=== PATIENT | female | born 2000 | race Caucasian/White ===

== ENCOUNTER 2023-11-19 02:59 | Emergency (ER) | payer SELFPAY ==
[2023-11-19 03:22] LABS: BASOPHILS ABSOLUTE AUTO 0.03 K/uL (0.00-0.20); BASOPHILS PERCENT AUTO 0.2 % (0.0-1.0); EOSINOPHILS ABSOLUTE AUTO 0.03 K/uL (0.00-0.45); EOSINOPHILS PERCENT AUTO 0.2 % (0.0-6.0); HEMATOCRIT 43.6 % (37.0-47.0); HEMOGLOBIN 14.6 g/dL (12.0-16.0); IMMATURE GRAN ABSOLUTE AUTO 0.04 K/uL (0.00-0.05); IMMATURE GRAN PERCENT AUTO 0.3 % (0.0-0.4); LYMPHOCYTES ABSOLUTE AUTO 2.91 K/uL (1.00-4.80); LYMPHOCYTES PERCENT AUTO 23.1 % (24.0-44.0); MEAN CORPUSCULAR HEMOGLOBIN 28.6 pg (28.0-32.0); MEAN CORPUSCULAR HGB CONC 33.5 g/dL (32.0-36.0); MEAN CORPUSCULAR VOLUME 85.5 fL (83.0-99.0); MEAN PLATELET VOLUME 10.7 fL (9.4-12.3); MONOCYTES PERCENT AUTO 5.6 % (0.0-8.0); NEUTROPHILS ABSOLUTE AUTO 8.87 K/uL (1.80-7.70); NEUTROPHILS PERCENT AUTO 70.6 % (41.0-71.0); PLATELET COUNT,PLT 310 K/uL (150-400); WHITE BLOOD CELL COUNT,WBC 12.58 K/uL (3.9-11.3)
[2023-11-19 03:46] LABS: ALBUMIN 3.9 g/dL (3.4-5.0); BILIRUBIN TOTAL 0.6 mg/dL (0.2-1.0); CALCIUM 9.6 mg/dL (8.5-10.1); CARBON DIOXIDE,CO2 24.7 mmol/L (21.0-32.0); CREATININE 0.9 mg/dL (0.6-1.0); EST CRCL DRUG DOSING (CG) 75.58 mL/min; POTASSIUM,K 4.3 mmol/L (3.5-5.1); PROTEIN TOTAL,TP 7.9 g/dL (6.4-8.2)
[2023-11-19 03:48] LABS: APPEARANCE,URINE SLT CLOUDY; COLOR,URINE YELLOW; GLUCOSE,URINE NEGATIVE (NEGATIVE); KETONES,URINE NEGATIVE (NEGATIVE); LEUKOCYTE ESTERASE,URINE NEGATIVE (NEGATIVE); NITRITE,URINE POSITIVE (NEGATIVE); OCCULT BLOOD,URINE SMALL (NEGATIVE); PH,URINE 5.5 (5.0-8.0); PROTEIN,URINE NEGATIVE (NEGATIVE)
[2023-11-19 03:54] LABS: BILIRUBIN,URINE SMALL (NEGATIVE)
[2023-11-19] MEDS: Ketorolac 30 MG/ML SDV IVPUSH ONE (03:54)
[2023-11-19 03:55] LABS: BACTERIA,URINE 1+ (NEGATIVE); EPITHELIAL CELLS,URINE FEW (NONE-FEW); WBC,URINE 0-1 (0-5/HPF)
[2023-11-19] MEDS: Sodium Chloride 0.9% 2.5 ML Syringe FLUSH PRN (03:56)
[2023-11-19] MEDS: Sodium Chloride 0.9% 10 ML Syringe FLUSH PRN (03:56)
[2023-11-19] MEDS: Ondansetron 4 MG Tab PO ONE (04:09)
[2023-11-19] MEDS: Ondansetron 4 MG/2 ML SDV IVPUSH ONE (04:12)
== END 2023-11-19 04:55 | disposition home or self-care (01) ==
LOC: MW.ED 02:59
DX: K80.20 Calculus of gallbladder without cholecystitis without obstruction (principal); I10 Essential (primary) hypertension; F17.210 Nicotine dependence, cigarettes, uncomplicated; Z79.899 Other long term (current) drug therapy; Z88.1 Allergy status to other antibiotic agents; Z75.8 Other problems related to medical facilities and other health care
CPT/HCPCS: 36415; 76705; 76705-26; 80053; 81001; 81025; 83690; 85025; 96374; 96375; 99284-25; J1885; J2405; J3490

== ENCOUNTER 2023-11-30 09:15 | Day surgery (SDC) | payer SELFPAY ==
[~2023-11-30 09:15] MED LIST: Albuterol 0.083% 2.5 MG/3 ML Neb Soln NEB PRN; Dexamethasone 4 MG/ML 5 ML MDV ONE; HYDROmorphone 1 MG/ML Syringe IVPUSH PRN; Lidocaine 2% 5 ML SDV ONE; Metoclopramide 10 MG/2 ML SDV IVPUSH PRN; Morphine 2 MG/ML SYRINGE IVPUSH PRN; Naloxone 0.4 MG/ML SDV IVPUSH PRN; Ondansetron 4 MG/2 ML SDV IVPUSH PRN; Ondansetron 4 MG/2 ML SDV ONE; Phenylephrine HCl In 0.9% NaCl 1 MG/10 ML Syringe IVPUSH PRN; Propofol 200 MG/20 ML SDV ONE; Rocuronium Bromide 50 MG/5 ML Syringe ONE; ceFAZolin 2 GM in Sodium Chloride 0.9% 50 ML IV ONE; droPERidol 5 MG/2 ML SDV IVPUSH PRN; fentaNYL 100 MCG/2 ML SDV ONE; fentaNYL 50 MCG/ML SDV IVPUSH PRN
[2023-11-30] MEDS ORDERED: dexmedeTOMIDine HCl 200 MCG/2 ML SDV IV ONE (09:16)
[2023-11-30] MEDS: Scopalamine 1mg/3day Transdermal Patch TOP ONE (09:52)
[2023-11-30] MEDS: Lactated Ringers 1,000 ML IV SCH (09:57)
[2023-11-30] MEDS ORDERED: Midazolam 1 MG/ML 2 ML SDV ONE (10:35)
[2023-11-30] MEDS ORDERED: Ropivacaine 0.5% 5 MG/ML 30 ML SDV ONE (10:49)
[2023-11-30] MEDS ORDERED: Bupivacaine 0.25% 30 ML SDV ONE (11:44)
[2023-11-30] MEDS ORDERED: Bupivacaine 0.5% 30 ML SDV ONE (11:45)
[2023-11-30] MEDS ORDERED: ceFAZolin 1 GM Vial ONE ×2 (11:45→12:20)
[2023-11-30] MEDS ORDERED: Indocyanine Green 25 MG SDV ONE (12:26)
[2023-11-30] MEDS ORDERED: Rocuronium Bromide 50 MG/5 ML Syringe ONE (12:54)
[2023-11-30] MEDS ORDERED: fentaNYL 100 MCG/2 ML SDV ONE (12:56)
[2023-11-30] MEDS ORDERED: Ketorolac 30 MG/ML SDV ONE (13:01)
[2023-11-30] MEDS ORDERED: Sugammadex Sodium 200 MG/2 ML VIAL IV ONE (13:04)
[2023-11-30] MEDS ORDERED: Acetaminophen/HYDROcodone 325-5 MG Tab PO PRN (14:21)
[2023-11-30] MEDS ORDERED: Morphine 4 MG/ML Syringe IVPUSH PRN (14:21)
[2023-11-30] MEDS ORDERED: Lactated Ringers 1,000 ML IV SCH (14:30)
== END 2023-11-30 15:38 | disposition home or self-care (01) ==
LOC: MW.SDS 09:15
PROVIDERS: ATTEND Surgery
DX: K80.10 Calculus of gallbladder with chronic cholecystitis without obstruction (principal); I10 Essential (primary) hypertension; F41.9 Anxiety disorder, unspecified; F17.290 Nicotine dependence, other tobacco product, uncomplicated; Z79.899 Other long term (current) drug therapy
CPT/HCPCS: 47563; 81025; A9270; J0131; J0665; J0690; J1100; J1885; J2250; J2405; J2704; J2795; J3010; J3490; J7120; 00790; 64488

== ENCOUNTER 2024-12-31 10:31 | Emergency (ER) | payer MEDICAID ==
[2024-12-31] MEDS ORDERED: Sodium Chloride 0.9% 10 ML Syringe FLUSH PRN (10:56)
[2024-12-31] MEDS ORDERED: Sodium Chloride 0.9% 2.5 ML Syringe FLUSH PRN (10:56)
[2024-12-31 11:32] LABS: BASOPHILS ABSOLUTE AUTO 0.05 K/uL (0.00-0.20); BASOPHILS PERCENT AUTO 0.6 % (0.0-1.0); EOSINOPHILS ABSOLUTE AUTO 0.07 K/uL (0.00-0.45); EOSINOPHILS PERCENT AUTO 0.8 % (0.0-6.0); IMMATURE GRAN ABSOLUTE AUTO 0.02 K/uL (0.00-0.05); IMMATURE GRAN PERCENT AUTO 0.2 % (0.0-0.4); LYMPHOCYTES ABSOLUTE AUTO 2.66 K/uL (1.00-4.80); LYMPHOCYTES PERCENT AUTO 31.9 % (24.0-44.0); MEAN PLATELET VOLUME 10.8 fL (9.4-12.3); MONOCYTES ABSOLUTE AUTO 0.49 K/uL (0.00-0.80); MONOCYTES PERCENT AUTO 5.9 % (0.0-8.0); NEUTROPHILS ABSOLUTE AUTO 5.06 K/uL (1.80-7.70); NEUTROPHILS PERCENT AUTO 60.6 % (41.0-71.0); NRBC ABSOLUTE 0.00 K/uL (0.00-0.02); NRBC PERCENT 0.0 /100WBC (0.0-0.2); PLATELET COUNT,PLT 284 K/uL (150-400); RED BLOOD CELL COUNT 5.17 M/uL (4.10-5.30); WHITE BLOOD CELL COUNT,WBC 8.35 K/uL (3.9-11.3)
[2024-12-31 11:51] LABS: A/G RATIO 1.0 (0.9-1.6); ALANINE AMINOTRANSFERASE,ALT 45.0 IU/L (14-63); ASPARTATE AMNIOTRANSFERASE,AST 18.0 IU/L (15-37); BILIRUBIN TOTAL 0.9 mg/dL (0.2-1.0); BLOOD UREA NITROGEN,BUN 11.0 mg/dL (7.0-18.0); CARBON DIOXIDE,CO2 24.0 mmol/L (21.0-32.0); CHLORIDE,CL 107.0 mmol/L (98-107); CREATININE 1.0 mg/dL (0.6-1.0); EST CRCL DRUG DOSING (CG) 67.43 mL/min; GLUCOSE RANDOM 112.0 mg/dL (74-106); POTASSIUM,K 3.6 mmol/L (3.5-5.1); PROTEIN TOTAL,TP 7.6 g/dL (6.4-8.2); SODIUM,NA 141.0 mmol/L (136-145)
[2024-12-31 11:54] LABS: ESTIMATED GFR 80.0 mL/min (>60)
[2024-12-31] MEDS: Ondansetron 4 MG/2 ML SDV IVPUSH ONE (11:56)
[2024-12-31 12:16] LABS: GLUCOSE,URINE NEGATIVE (NEGATIVE); OCCULT BLOOD,URINE LARGE (NEGATIVE)
[2024-12-31 12:21] LABS: APPEARANCE,URINE HAZY
[2024-12-31] MEDS: Ketorolac 30 MG/ML SDV IVPUSH ONE (12:22)
[2024-12-31 12:26] LABS: EPITHELIAL CELLS,URINE FEW (NONE-FEW)
[2024-12-31] MEDS: Iopamidol 755 MG/ML 500 ML Multipack Bottle IVPUSH STA (12:34)
== END 2024-12-31 14:15 | disposition home or self-care (01) ==
LOC: MW.ED 10:31
DX: K52.9 Noninfective gastroenteritis and colitis, unspecified (principal); J18.9 Pneumonia, unspecified organism; I10 Essential (primary) hypertension; E66.9 Obesity, unspecified; F17.200 Nicotine dependence, unspecified, uncomplicated; Z79.899 Other long term (current) drug therapy; Z88.1 Allergy status to other antibiotic agents
CPT/HCPCS: 36415; 74177; 80053; 81001; 81025; 83690; 83735; 85025; 87086; 96361; 96374; 96375; 99284; A9270; J2270; J2405; J7030; Q9967